=== PATIENT | female | born 1990 | race Caucasian/White ===

== ENCOUNTER 2021-12-09 11:58 | Inpatient (IN) | payer OTHER, SELFPAY ==
[2021-12-09] VITALS (14 sets, daily range): BP systolic 111–126; BP diastolic 70–82; PULSE 78–101; BMI 32.1
--- NOTE | 2021-12-09 11:58 | LDADM ---
This patient, Albin Bell, was admitted to Labor/Delivery/Recovery 108 on 12/09/21 at 11:58. Plans for labor, pain management and were discussed with patient. Patient/family oriented to hospital policies and general routines including ID bracelet, bed and alarms, visiting hours, pain management, procedures, bathroom and other care routines, personal items, smoking policy, room service/diet and guest tray routines, infant security routines, and visiting hours. Patient/Family are encouraged to report perceived risks to care and to ask questions if they do not understand what they are told or what they should do. See OBIX for further documentation.
--- OUTSIDE RECORDS SUMMARY | 2021-12-09 12:04 | XMS_ITS ---
:1990 Author Care Team Providers Name Role Phone [facility] Primary Care Provider Allergies Code Code System Name Reaction Severity Status Onset NKDA ? Medications Name Status Start Date Stop Date ? ? Accu-Chek Guide Me Glucose Meter Active ? Not available USE 4 TIMES DAILY (1 TIME FASTING AND ALSO 1 HOUR AFTER EACH ME AL) Accu-Chek Guide test strips Active ? Not available USE 4 TIMES DAILY (1 TIME FASTING AND ALSO 1 HOUR AFTER EACH ME AL) Accu-Chek Softclix Lancets Active ? Not a vailable USE 4 TIMES DAILY (1 TIME FASTING AND ALSO 1 HOUR AFTER EACH ME AL) fluticasone propionate 50 mcg/actuation Completed ? 08/18/2021 nasal spray,suspension ID NOW COVID-19 Test Kit Completed ? 022 TEST DIRECTED TODAY prednisone 10 mg tablet Completed ? 08/18/20 Vitamin Active ? Not available Problems Name Status Onset Date Source ? Active 07/17/2021 ? Procedures Date Name Performed by ? 09/27/2012 Cholecystectomy Information not avai lable 06/17/2021 US, Obstetric, 1St Trimester [place] [address] [place] [address] (Work [address]) 08/18/2021 US, Obstetric, 2Nd or 3Rd Trimester [facility] [address] [facility]
--- OUTSIDE RECORDS SUMMARY | 2021-12-09 12:04 | XMS_ITS | Encounter Summary ---
:1990 Author Care Team Providers Name Role Phone [facility] Primary Care Provider Reason for Visit None recorded. Assessment and Plan 1. Gestational diabetes mellitus , class A>2< ? non-stress test Discussion Note: None recorded.Patient educational handouts: No information available. Plan of Care Reminders Provider Appointments Ob Routine 12/12/2021 Daisy Stocktone, 11:30AM CNM ? Nst 12/12/2021 Nst, , EQUI P 10:45AM ? Nst 12/16/2021 Nst, , EQUI P 10:00AM ? Nst 12/19/2021 Nst, , EQUI P 10:00AM ? Ob Routine 12/19/2021 Katie Stocktone, 10:45AM CNM ? Nst 12/23/2021 Nst, , EQUI P 10:00AM ? Nst 12/26/2021 Nst, , EQUI P 10:00AM ? Ob Routine 12/26/2021 Katie Stocktone, 10:30AM CNM ? Nst 12/30/2021 Nst, , EQUI P 10:00AM ? Nst 01/02/2022 Nst, , EQUI P 10:00AM ? U/s Ob 01/02/2022 Ultrasound Two, Growth 9:30AM TECH ? Ob Routine 01/02/2022 Katie Raogle, 10:30AM CNM ? 3Hr on or around Katie Mccoy ringle, Glucose 2022 CNM Lab None ? ?
--- OUTSIDE RECORDS SUMMARY | 2021-12-09 12:04 | XMS_ITS | Encounter Summary ---
:1990 Author Care Team Providers Name Role Phone [facility] Primary Care Provider Reason for Visit NST [id number] EDC 12/28/2021 LMP 03/23/2021 Assessment and Plan 1. Gestational diabetes mellitus , class A>1< ? non-stress test Discussion Note: None recorded.Patient educational handouts: No information available. Plan of Care Reminders Provider Appointments Ob Routine 12/12/2021 Daisy De Leon, 11:30AM CNM ? Nst 12/12/2021 Nst, , EQUI P 10:45AM ? Nst 12/16/2021 Nst, , EQUI P 10:00AM ? Nst 12/19/2021 Nst, , EQUI P 10:00AM ? Ob Routine 12/19/2021 Katie Stocktone, 10:45AM CNM ? Nst 12/23/2021 Nst, , EQUI P 10:00AM ? Nst 12/26/2021 Nst, , EQUI P 10:00AM ? Ob Routine 12/26/2021 Katie De Leon, 10:30AM CNM ? Nst 12/30/2021 Nst, , EQUI P 10:00AM ? Nst 01/02/2022 Nst, , EQUI P 10:00AM ? U/s Ob 01/02/2022 Ultrasound Two, Growth 9:30AM TECH ? Ob Routine 01/02/2022 Katie Raogle, 10:30AM CNM ? 3Hr on or around Katie nicolas, Glucose 2022 CNM Lab None ?
--- OUTSIDE RECORDS SUMMARY | 2021-12-09 12:04 | XMS_ITS | Encounter Summary ---
:1990 Author Care Team Providers Name Role Phone [facility] Primary Care Provider Reason for Visit NST Assessment and Plan 1. Gestational diabetes mellitus [...] 9:30AM TECH ? Ob Routine 01/02/2022 Katie Stocktone, 10:30AM CNM ? 3Hr on or around Katie Mccoy ringle, Glucose 2022 CNM Lab None ? ?
--- OUTSIDE RECORDS SUMMARY | 2021-12-09 12:04 | XMS_ITS | Encounter Summary ---
:1990 Author Care Team Providers Name Role Phone [facility] Primary Care Provider Reason for Visit OB visit 34w2d Assessment and Plan 1. Routine care Discussion Note: None recorded.Patient educational handouts: No [...] Glucose 2022 CNM Lab None ? ? recorded.
--- OUTSIDE RECORDS SUMMARY | 2021-12-09 12:04 | XMS_ITS | Encounter Summary ---
:1990 Author Care Team Providers Name Role Phone [facility] Primary Care Provider Reason for Visit NST [id number] EDC 12/28/2021 LMP 03/23/2021 Assessment and Plan [...]
--- OUTSIDE RECORDS SUMMARY | 2021-12-09 12:04 | XMS_ITS | Encounter Summary ---
:1990 Author Care Team Providers Name Role Phone [facility] Primary Care Provider Reason for Visit None [...]
--- OUTSIDE RECORDS SUMMARY | 2021-12-09 12:04 | XMS_ITS | Encounter Summary ---
:1990 Author Care Team Providers Name Role Phone [facility] Primary Care Provider Reason for Visit None [...]
--- OUTSIDE RECORDS SUMMARY | 2021-12-09 12:04 | XMS_ITS | Encounter Summary ---
:1990 Author Care Team Providers Name Role Phone [facility] Primary Care Provider Reason for Visit None recorded. Assessment and Plan 1. condition affecting obs tetrical care of mother ? US, obstetric, biophysical profile + non-stress test Discussion Note: None recorded.Patient educational [...] , EQUI P 10:00AM ? U/s Ob Growth 01/02/2022 Ult rasound Two, 9:30AM TECH ? Ob Routine 01/02/2022 Katie Stocktone, 10:30AM CNM ? 3Hr Glucose on or around Kaushik Stocktone, 2022 CNM
--- OUTSIDE RECORDS SUMMARY | 2021-12-09 12:04 | XMS_ITS | Encounter Summary ---
:1990 Author Care Team Providers Name Role Phone [facility] Primary Care Provider Reason for Visit OB visit 32w3d Assessment and Plan 1. Routine care Discussion [...]
--- OUTSIDE RECORDS SUMMARY | 2021-12-09 12:04 | XMS_ITS | Encounter Summary ---
:1990 Author Care Team Providers Name Role Phone [facility] Primary Care Provider Reason for Visit OB visit 35w2d Assessment and Plan 1. Routine care Discussion [...]
--- OUTSIDE RECORDS SUMMARY | 2021-12-09 12:04 | XMS_ITS | Encounter Summary ---
:1990 Author Care Team Providers Name Role Phone [facility] Primary Care Provider Reason for Visit OB visit 36w2d / GBS today Assessment and Plan 1. Routine care Discussion Note: None recorded.Patient educational handouts: No information available. Plan of Care Reminders Provider Appointments Ob Routine 12/12/2021 Daisy De Leon, 11:30AM CNM ? Nst 12/12/2021 Nst, , EQUI P 10:45AM ? Nst 12/16/2021 Nst, , EQUI P 10:00AM ? Nst 12/19/2021 Nst, , EQUI P 10:00AM ? Ob Routine 12/19/2021 Katie De Leon, 10:45AM CNM ? Nst 12/23/2021 Nst, , [...]
--- OUTSIDE RECORDS SUMMARY | 2021-12-09 12:04 | XMS_ITS | Encounter Summary ---
:1990 Author Care Team Providers Name Role Phone [facility] Primary Care Provider Reason for Visit None recorded. Assessment and Plan 1. Gestational diabetes mellitus , class A>1< ? US, obstetric, follow-up Discussion Note: None recorded.Patient educational handouts: No [...]
--- OUTSIDE RECORDS SUMMARY | 2021-12-09 12:04 | XMS_ITS | Encounter Summary ---
:1990 Author Care Team Providers Name Role Phone [facility] Primary Care Provider Reason for [...]
--- OUTSIDE RECORDS SUMMARY | 2021-12-09 12:04 | XMS_ITS | Encounter Summary ---
:1990 Author Care Team Providers Name Role Phone [facility] Primary Care Provider Reason for Visit None recorded. Assessment and Plan 1. Gestational diabetes mellitus , class A>1< Informed pt of results, explai marvin in depth what the high levels mean, how her body is not processing the sugars correctly and this does rule her in for GDM. Pt states she had GDM with previous and just wanted to go over go al levels and carb limits, however has a good idea of what to change and follow. Spoke with patient about diet changes an d how to adjust meals to decrease carbs and increase protein and healthy fats. Advised to continue low sugar, low carb diet, and higher proteins. Reviewed differe nt meal adjustments and ways to decrease carbs with still getting all of the nutrients she needs. Advised to follow 3 meals a day with snacks in between meals with importance on the bedtime meal. Review ed nutritional label with patient and ho w to count carbs for each meal. Advised to be conscientious of meals and record foods that increase her levels and to avoid those types of foods. Reviewed acceptable drinks for patient and what to avoid. Advised to continue checking blood sugar s four times daily fasting and 1 hour after breakfast, lunch, and dinner. All supplies called into pharmacy on file, confirmed with patient. Pt states checks are going well, no problems with equipment, and understands when to check levels. Advised to continue to record all levels and bring to all appointments from here on out to review with MD. Follow up with to receive packet of info and to review any additional info/questions. Advised will monitor diet controlled and assess the need for insulin administration if levels are trending high without the help of diet. Discussed with pt in depth follow up ted stone PP 6 weeks to evaluate the need for PCP to be involved if levels are high. Advised otherwise, if normal PCP will need to follow yearly/every 2 years to monitor. Advised pt if any lev
--- OUTSIDE RECORDS SUMMARY | 2021-12-09 12:05 | XMS_ITS | Encounter Summary ---
:1990 Author Care Team Providers Name Role Phone [facility] Primary Care Provider Reason for Visit None recorded. Assessment and Plan 1. screening ? US, obstetric, follow-up Discussion Note: None [...]
--- OUTSIDE RECORDS SUMMARY | 2021-12-09 12:05 | XMS_ITS | Encounter Summary ---
:1990 Author Care Team Providers Name Role Phone [facility] Primary Care Provider Reason for Visit OB visit OB 30w3d EDC 01/24/2022 LMP 03/23/2021 Assessment and Plan Assessment Note Patient is 30___weeks . Dis cussed plan. 1. Routine care Discussion Note: None recorded.Patient [...] 9:30AM TECH ? Ob Routine 01/02/2022 Katie De Leon, 10:30AM CNM ? 3Hr on or around Katie nicolas,
--- OUTSIDE RECORDS SUMMARY | 2021-12-09 12:05 | XMS_ITS | Encounter Summary ---
:1990 Author Care Team Providers Name Role Phone [facility] Primary Care Provider Reason for Visit OB visit 25w4d Assessment and Plan 1. Routine care Discussion [...]
--- OUTSIDE RECORDS SUMMARY | 2021-12-09 12:05 | XMS_ITS | Encounter Summary ---
:1990 Author Care Team Providers Name Role Phone [facility] Primary Care Provider Reason for Visit OB visit 28w3d / Glucose Assessment and Plan 1. Routine care Discussion [...]
--- OUTSIDE RECORDS SUMMARY | 2021-12-09 12:05 | XMS_ITS | Encounter Summary ---
:1990 Author Care Team Providers Name Role Phone [facility] Primary Care Provider Reason for Visit [...]
[2021-12-09 12:51] LABS: Glucose Point of Care 84 mg/dl (65-105)
[2021-12-09 12:56] LABS: Basophils Percent Auto 0.3 % (0.2-1.2); Eosinophils Percent Auto 0.3 % (0-4.4); Hematocrit 36.6 % (37.0-47.0); Hemoglobin 12.2 g/dL (12.0-15.0); Immature Granulocyte Absolute 0.04 K/mm3 (0.00-0.031); Immature Granulocyte Percent A 0.5 % (0-0.5); Lymphocytes Absolute Auto 1.43 K/mm3 (0.9-3.2); Lymphocytes Percent Auto 16.7 % (18.3-44.2); Mean Corpuscular HGB Conc 33.3 g/dl (32-36); Mean Corpuscular Hemoglobin 31.9 pg (26-34); Mean Corpuscular Volume 95.6 fl (80-100); Mean Platelet Volume 12.1 fl (7.4-10.4); Monocytes Absolute Auto 0.6 K/mm3 (0.1-0.6); Neutrophils Absolute Auto 6.5 K/mm3 (1.3-6.7); Neutrophils Percent Auto 75.2 % (45.5-73.1); Platelet Count Result 211 k/mm3 (150-375); Red Blood Count 3.83 M/mm3 (4.2-5.4); Red Cell Distribution Width 13.2 % (11.5-14.5); White Blood Count 8.6 K/mm3 (4.5-10.0)
[2021-12-09] MEDS: DINOPROSTONE 10 MG VAG INSERT VAGINAL (13:39)
[2021-12-09 17:24] LABS: Glucose Point of Care 81 mg/dl (65-105)
[2021-12-09 18:11] LABS: Rapid Plasma Reagin Non-Reactive (NonReactive)
[2021-12-09 21:34] LABS: Glucose Point of Care 80 mg/dl (65-105)
[2021-12-10] VITALS (27 sets, daily range): BP systolic 106–145; BP diastolic 68–96; PULSE 75–93; RESP 16; TEMP 36.3–36.9; O2SAT 97–100
[2021-12-10 02:04] LABS: Glucose Point of Care 87 mg/dl (65-105)
[2021-12-10] MEDS: LACTATED RINGERS 1,000 ML 125 ML IV CONT ×2 (03:16→06:33)
[2021-12-10] MEDS: OXYTOCIN 30 UNITS/NS 500 ML 30 UNITS/500 ML BAG IV CONT (03:55)
[2021-12-10 05:38] LABS: Glucose Point of Care 130 mg/dl (65-105)
[2021-12-10 06:43] LABS: Glucose Point of Care 104 mg/dl (65-105)
--- NOTE | 2021-12-10 07:27 | WPDOBADMIT ---
Obstetrics - Admit Note Admission Note: record reviewed. No pertinent additions to the history and/or any subsequent changes in the physical findings that are not consistent with the expected course of the were found. arom min amount of clear odorless fluid, anticipate vaginal delivery Additions to the history and/or subsequent changes in the physical findings follow. None.
[2021-12-10 10:35] LABS: Glucose Point of Care 100 mg/dl (65-105)
--- NOTE | 2021-12-10 13:03 | PM.OBPRVD ---
OB - Delivery Note Procedure Delivery date: 12/10/21 Procedure: vaginal delivery Events: Other (oligo) Induction method: AROM, Per Pitocin Protocol and Per Cervidil Protocol Delivery monitor: External FHT and External Uterine Route of delivery: Laceration Description: Perineal - 1st Degree Delivery repair: vicryl Specimen: Yes Quantitative Blood Loss (ml): 80 Anesthesia type: Epidural Disposition: Floor Baby Date of : 12/10/21 Time of : 12:44 Weeks of gestation at delivery: 37 Infant gender: Male Weight (pounds): 6 Weight (ounces): 2 presentation: vertex position: Left Occiput Anterior Cord Vessel Description: 3 Vessels, Nuchal Cord, Loose and Reduced score one minute: 7 score five minutes: 8 Narrative: mom and baby in stable condition
[2021-12-10] MEDS: OXYTOCIN 30 UNITS/NS 500 ML 30 UNITS/500 ML BAG 125 UNITS IV CONT (13:09)
--- NOTE | 2021-12-10 17:03 | OBPPTRN ---
1522-Patient transferred to post room #286 via wheelchair. Support person present. Oriented to unit, room, information board, rooming in, admission packet and security measures. Patient verbalizes understanding.
[2021-12-10] MEDS: IBUPROFEN 600 MG TABLET PO (17:14)
[2021-12-11] VITALS: BP 98/68; PULSE 75; RESP 16; TEMP 36.6; O2SAT 100
[2021-12-11 04:00] VITALS: BP 110/76; PULSE 67; RESP 16; TEMP 36.8; O2SAT 97
[2021-12-11 05:55] LABS: Hematocrit 34.6 % (37.0-47.0); Hemoglobin 11.7 g/dL (12.0-15.0)
[2021-12-11 08:25] VITALS: BP 104/65; PULSE 80; RESP 18; TEMP 36.1; O2SAT 100
[2021-12-11] MEDS: MULTIVIT/MIN/PREN/FOL AC/IRON TABLET 1 TAB PO (08:43)
--- NOTE | 2021-12-11 10:02 | PC.NURSE ---
Infant showing no feeding cues at this time. Attempted to awaken and placed in football position. No latch achieved. Mother is experienced x 14 months with daughter and had no supply or latch issues. has not breastfed since 2300 last night. Blood sugar = 67 and void x1, mec x1 at this time. Mother was able to hand express 6 drops of colostrum from each breast and was spoon fed to infant. Setup mother to pump at this time. Mother using 27mm flange to right breast and 24mm flange to left breast for optimal comfort. Pump x 15minutes q 3 hours if continues not to latch. Parents requested to supplement with Similac at this time. Infant tool 13ml via paced feeding and chin support provided. Coordinated suck/swallow. Parents verbalized understanding of info provided and instructed to call out for any further feeding assistance needs.
[2021-12-11 12:38] VITALS: BP 114/76; PULSE 72; RESP 16; TEMP 36.3; O2SAT 100
[2021-12-11] MEDS: IBUPROFEN 600 MG TABLET PO (16:49)
--- NOTE | 2021-12-11 19:46 | PC.NURSE ---
Instructions regarding viewing the care discharge video given to parents. Verbalized understanding regarding how to access and watch video.
[2021-12-11 19:47] VITALS: BP 125/79; PULSE 72; RESP 16; TEMP 36.8; O2SAT 99
--- NOTE | 2021-12-12 07:07 | PM.OBPNVD ---
OB - PN: Subj Subjective Date/time seen: 12/12/21 07:07 Patient comments: no complaints baby status: doing well [place] feeding status: exclusively breast feeding OB - PN: Obj Data Labs CBC & Chem 7: 12/11/21 04:38 OB - PN A/P Plan day: 2 Plan: routine care and discharge home Time Spent With Patient Time: Total time spent is greater than 50% in coordination of care (as documented) at patient's floor/unit and/or counseling patient: Review of Systems Review of Systems: All systems reviewed & are unremarkable except as noted in HPI and below Exam Const: General: cooperative, healthy appearing, comfortable and no acute distress
--- NOTE | 2021-12-12 07:09 | PM.OBDSVD ---
DS: Admitting Diagnosis Discharge Date 12/12/21 Admitting Diagnosis IOL OB - DS: Summary OB Procedures : None OB Procedures Intrapartum: Spontaneous Vag Delivery OB Procedures: : None Time Spent with Patient Time attestation: Total time spent providing and/or coordinating discharge services: DS: Data Data Completed and Pending Pending studies at discharge: Pending at discharge 12/10/21 14:13 Surgical [PTH] Routine Discharge Plan Discharge Attending physician on discharge: Lilo Garcia Discharging Clinician: Katie De Leon Patient Disposition: Home, Self-Care Activity: pelvic rest Diet: regular Patient Instructions: Antibiotic Form Stand Alone Forms: General Discharge Information Follow-up/Referrals: Katie De Leon CNM [Certified Nurse Coding Team Lead] - 4 Weeks Discharge Medications: Continued PNV [id number] [] 28 mg iron- 800 mcg Tablet 1 tablet PO DAILY RF: 0 Discontinued aspirin 81 mg Capsule 81 mg PO DAILY RF: 0 Date of admission: 12/09/21 11:58 Primary Care Provider: PHYSICIAN,QUICK TECHNICIAN Admitting Provider: Jennifer Marshall Attending physician on admission: Jennifer Marshall Condition: Stable
[2021-12-12 07:55] VITALS: BP 117/70; PULSE 78; RESP 18; TEMP 36.3; O2SAT 100
[2021-12-12] MEDS: MULTIVIT/MIN/PREN/FOL AC/IRON TABLET 1 TAB PO (08:27)
--- NOTE | 2021-12-12 10:07 | PC.NURSE ---
Patient viewed the discharge video Mother & Baby Care, The First Two Weeks . Patient was given the opportunity and encouraged to ask questions. Patient verbalized understanding of information shared and has been given the mother/baby guide for home reference.
--- NOTE | 2021-12-12 10:50 | PC.NURSE ---
Encouraged to call for next breastfeed to have it assessed
--- NOTE | 2021-12-12 10:52 | PC.NURSE ---
Introductions were made and mother led the conversation with regards to her experience feeding her baby. Reminded parents to use good handwashing to prevent infection. has had 8 feedings in the past 24 hours and meets the outcomes for weight, output and jaundice. Mother states she feels confident to continue effectively her at home. Reviewed production of human milk, transition of milk, signs of adequate intake and engorgement prevention/relief and when to call the care provider using the mom and baby guide & elimination sheet. Reviewed community resources and outpatient services as listed in the mom and baby guide/[facility] website. Reinforced watching for feeding cues with responsive feeding and how to stimulate to initiate feeding three hours from the start of the last feeding. Mother voiced understanding of information shared. Reported to primary RN.
[2021-12-13 15:00] VITALS: BP 133/81; PULSE 74; RESP 20; TEMP 37.2; O2SAT 100
== END 2021-12-12 11:48 | disposition home or self-care (01) | DRG 806 ==
LOC: ANHLDR 12-10 08:41 → ANHOB2 12-10 15:24
PROVIDERS: Advanced Practice Midwife; Admitting Provider Obstetrics & Gynecology; Visit Provider Obstetrics & Gynecology
DX: O24.429 Gestational diabetes mellitus in childbirth, unspecified control (principal); O41.03X0 Oligohydramnios, third trimester, not applicable or unspecified; Z37.0 Single live birth; Z3A.37 37 weeks gestation of pregnancy; O70.0 First degree perineal laceration during delivery; O69.81X0 Labor and delivery complicated by cord around neck, without compression, not applicable or unspecified
CPT/HCPCS: 36415; 82948; 85014; 85018; 85025; 86592; 86850; 86900; 86901; 88307; A9270; J2590; J7120